=== PATIENT | female | born 1960 | race Caucasian/White ===

== ENCOUNTER 2020-12-25 13:57 | Emergency (ER) | payer OTHER ==
[2020-12-25 15:26] LABS: HEMOGLOBIN 14.4 gm/dl (12.3-15.3); RED BLOOD COUNT 4.59 M/UL (4.00-5.10)
[2020-12-25 16:04] LABS: BUN/CREATININE RATIO 15 (0-10)
== END 2020-12-25 15:15 | disposition short-term general hospital (02) ==
LOC: ER1 13:57
PROVIDERS: Family Medicine
DX: R47.89 Other speech disturbances (principal); R42 Dizziness and giddiness; I10 Essential (primary) hypertension; Z90.49 Acquired absence of other specified parts of digestive tract
CPT/HCPCS: 70496; 70498; 71045; 80053; 82550; 82553; 83874; 84484; 85025; 85610; 85730; 93005; 99285; Q9967